=== PATIENT | female | born 1960 | race Caucasian/White ===

== ENCOUNTER → 2017-11-21 | Outpatient (CLI) | payer OTHER | END | disposition home or self-care (01) | LOC: PCVCIMAG 09:13 | DX: I63.9 Cerebral infarction, unspecified (principal); R06.00 Dyspnea, unspecified; E78.00 Pure hypercholesterolemia, unspecified; E78.5 Hyperlipidemia, unspecified; Z79.82 Long term (current) use of aspirin; Z87.891 Personal history of nicotine dependence | CPT/HCPCS: 93306 ==

== ENCOUNTER → 2017-12-23 | Outpatient (CLI) | payer OTHER ==
--- NOTE | 2017-12-24 09:31 | PCVCIMAG ---
APPROVED REPORT Study performed: 12/23/2017 14:36:26 Exam: Stress Echocardiogram Indication: Dyspnea , Hyperlipidemia Patient Location: Echo lab Stress Nurse: Gabby Jerez RN Room #: 1 Status: routine Ht: 5 ft 4 in HR: 95 bpm BP: 118/84 mmHg Rhythm: NSR Medical History Medical History: Stroke/TIA, Hyperlipidemia Cardiac Risk Factors: Hyperlipidemia Previous Cardiac Procedures: none Pretest Chest Pain Characteristics: No chest pain Exercise History: Indeterminate Procedure The patient underwent an Exercise Stress Test using the Cherrie Protocol. Blood pressure, heart rate, and EKG were monitored. An Echocardiogram was performed by manufacturing technician in four stages in quad fashion. At peak stress, four selected images were obtained and placed side by side with resting images for comparison. Stress Test Details Stress Test: Exercise stress testing was performed using a Cherrie protocol. HR Resting HR: 95 bpmMax Heart Rate (APMHR): 162 bpm Max HR Achieved: 171 bpmTarget HR (85% APMHR): 137 bpm % of APMHR: 105 Recovery HR: 112 bpm HR response to stress: Normal HR response to stress BP Resting BP: 118/84 mmHg Max BP: 176/84 mmHg Recovery BP: 140/84 mmHg ECG Resting ECG: Sinus Rhythm Stress ECG: Sinus Rhythm ST Change: Non-ischemic Arrhythmia: APC's Recovery ECG: Sinus Rhythm Recovery ST Change: Non-ischemic Recovery Arrhythmia: rare PAC Clinical Reason for Termination: Maximal effort Stress Symptoms: Fatigue Exercise duration: 9 min sec Highest Stage Achieved: Stage 3: 3.4 mph at 14% grade. Exercise capacity: 10.1 METs Overall Exercise Capacity for Age: Average Scale: Sedentary Angina Score: None No complications. Stress ECG Conclusion The patient exercised according to the CHERRIE protocol for 9:00 mins; achieving a work level of 10.1 METS. The resting heart rate of 95 bpm ani to a maximum heart rate of 171 bpm. This value represent 105% of the maximal, age-predicted heart rate. The resting blood pressure of 118/84 mmHg, ani to a maximum blood pressure of 176/84mmHg. The exercise test was stopped due tofatigue,dyspnea . Pre-Stress Echo The resting Echocardiogram showed normal left ventricular contractility with an estimated Ejection Fraction of about 55-60%. Normal wall motion in all segments on baseline images. Post-Stress Echo The stress Echocardiogram showed normal left ventricular contractility with an estimated Ejection Fraction of about 65-70%. Normal augmentation of wall motion in all segments on post stress images. Clinical No clinical or ECG evidence for ischemia. Conclusion Clinical Response: Non-ischemic Exercise Capacity: Average Stress ECG Response: Non-ischemic Stress Echo Images: Non-ischemic No clinical, EKG or echocardiographic evidence for ischemia. No echocardiographic evidence for exercise induced ischemia. Normal stress echocardiogram with maximal exercise stress. <Conclusion> No clinical, EKG or echocardiographic evidence for ischemia. No echocardiographic evidence for exercise induced ischemia. Normal stress echocardiogram with maximal exercise stress.
== END | disposition home or self-care (01) ==
LOC: PCVCIMAG 14:14
PROVIDERS: ATTEND Internal Medicine
DX: I63.9 Cerebral infarction, unspecified (principal); R06.09 Other forms of dyspnea; R53.83 Other fatigue; R07.9 Chest pain, unspecified
CPT/HCPCS: 93325; 93351